=== PATIENT | male | born 1990 | race African-American/Black ===

== ENCOUNTER 2017-10-04 11:08 | Emergency (ER) | payer SELFPAY ==
[~2017-10-04] VITALS: Ht 177.8 cm; Wt 75.3 kg
[2017-10-04 11:15] VITALS: BP 136/76
[2017-10-04] MEDS ORDERED: SULF1TAB24 PO (12:05)
--- NOTE | 2017-10-04 15:36 | PHYS DOC ---
Past Medical History Past Medical History: No Pertinent History Past Surgical History: Other Additional Past Surgical Histo: NOSE Alcohol Use: None Drug Use: Marijuana Adult General Chief Complaint Chief Complaint: ABSCESS HPI HPI Patient is a 27 year old male who presents with an abscess to his right upper buttock. This started a couple of days ago and is increasing in pain. The patient has not taken anything for this condition and has never had an abscess before. Review of Systems Review of Systems Constitutional: Denies fever or chills [] Respiratory: Denies cough or shortness of breath [] Cardiovascular: No additional information not addressed in HPI [] Musculoskeletal: Denies back pain or joint pain [] Integument: See history of present illness Neurologic: Denies headache, focal weakness or sensory changes [] Endocrine: Denies polyuria or polydipsia [] All other systems were reviewed and found to be within normal limits, except as documented in this note. Allergies Allergies Allergies Coded Allergies Type Severity Reaction Last Updated Verified No Known Drug Allergies 10/04/17 No Physical Exam Physical Exam Constitutional: Well developed, well nourished, no acute distress, non-toxic appearance. [] Cardiovascular:Heart rate regular rhythm, no murmur [] Lungs & Thorax: Bilateral breath sounds clear to auscultation [] Skin: Is a half centimeter in diameter lesion starting in the patient's right upper buttock, there is no fluctuation, there is mild induration in the tissue Neurologic: Alert and oriented X 3, normal motor function, normal sensory function, no focal deficits noted. [] Psychologic: Affect normal, judgement normal, mood normal. [] Current Patient Data Vital Signs Vital Signs Date Time Temp Pulse Resp B/P (MAP) Pulse Ox O2 Delivery O2 Flow Rate FiO2 10/04/17 11:15 98.4 79 16 99 Room Air 98.4 EKG EKG [] Radiology/Procedures Radiology/Procedures [] Course & Med Decision Making Course & Med Decision Making Pertinent Labs and Imaging studies reviewed. (See chart for details) []1. Abscess You have an abscess that appears to be beginning to form. Please take the antibiotics as directed. Use hot compresses multiple times daily. Please return to the ED if worsening. Dragon Disclaimer Dragon Disclaimer This electronic medical record was generated, in whole or in part, using a voice recognition dictation system. Departure Departure Impression: Primary Impression: Abscess Disposition: 01 HOME, SELF-CARE Condition: STABLE Referrals: NO PCP (PCP) NON,STAFF Patient Instructions: Abscess Additional Instructions: Please use hot compresses multiple times daily. Keep the area clean and dry area if the abscess worsens please return to the ED or follow-up your primary care. Take all antibiotics as prescribed. Scripts Sulfamethoxazole/Trimethoprim (BACTRIM DS TABLET) 1 Each Tablet 1 TAB PO BID, #20 TAB Prov: PLACIDO BENITEZ APRN 10/04/17 PLACIDO BENITEZ APRN Oct 04, 2017 15:35
== END 2017-10-04 12:18 | disposition home or self-care (01) ==
LOC: ER 11:08
DX: L02.31 Cutaneous abscess of buttock (principal)
CPT/HCPCS: 99283

== ENCOUNTER 2017-10-09 12:25 | Emergency (ER) | payer SELFPAY ==
[~2017-10-09] VITALS: Ht 177.8 cm; Wt 75.3 kg
[~2017-10-09 12:25] MED LIST: SULF1TAB24 PO
[2017-10-09 12:34] VITALS: BP 179/76
[2017-10-09] MEDS ORDERED: LIDOCAINE 1%/EPI 1:100,000 20 ML VIAL. INJ ONE (12:45)
[2017-10-09] MEDS ORDERED: fentaNYL PF VIAL 100 MCG/2 ML VIAL IM ONE (12:45)
[2017-10-09] MEDS ORDERED: DIPHTH,PERTUSS(ACELL),TET TOX 0.5 ML DISP.SYRIN. VAX IM ONE (12:45)
[2017-10-09] MEDS ORDERED: HYDR-971 PO (13:35)
--- NOTE | 2017-10-09 13:39 | PHYS DOC ---
Past Medical History Past Medical History: No Pertinent History Past Surgical History: Other Additional Past Surgical Histo: Nasal fx Alcohol Use: None Drug Use: None Adult General Chief Complaint Chief Complaint: ABSCESS HPI HPI Patient is a 27 year old male who presents with left buttock . Patient was seen earlier this month, felt to not have a fluctuant abscess and discharged with Bactrim. He states it significantly worsened. No fevers reported, no drainage. He has had an abscess in the past but it did not require incision and drainage. Unsure of last Tetanus immunization. Review of Systems Review of Systems Constitutional: Denies fever or chills [] Eyes: Denies change in visual acuity, redness, or eye pain [] HENT: Denies nasal congestion or sore throat [] Respiratory: Denies cough or shortness of breath [] Cardiovascular: Denies chest pain GI: Denies abdominal pain, nausea, vomiting, bloody stools or diarrhea [] : Denies dysuria or hematuria [] Musculoskeletal: Denies back pain or joint pain [] Integument: History of present illness Neurologic: Denies headache, focal weakness or sensory changes [] Endocrine: Denies polyuria or polydipsia [] Current Medications Current Medications Current Medications Medications (Trade) Dose Ordered Sig/Cassidy Start Time Stop Time Status Last Admin Dose Admin Diphtheria/ Tetanus/Acell Pertussis (Boostrix) 0.5 ml ONCE ONCE 10/09/17 12:45 10/09/17 12:46 DC 10/09/17 12:50 0.5 ML Fentanyl Citrate (Fentanyl 2ml Vial) 75 mcg 1X ONCE 10/09/17 12:45 10/09/17 12:46 DC 10/09/17 12:50 75 MCG Lidocaine/ Epinephrine (Xylocaine 1%-Epi 1:100,000) 20 ml 1X ONCE 10/09/17 12:45 10/09/17 12:46 DC 10/09/17 12:48 20 ML Allergies Allergies Allergies Coded Allergies Type Severity Reaction Last Updated Verified No Known Drug Allergies 10/04/17 No Physical Exam Physical Exam Constitutional: Well developed, well nourished, no acute distress, non-toxic appearance. HENT: Normocephalic, atraumatic Eyes: conjunctiva normal, no discharge. Neck:supple Cardiovascular:Heart rate regular with regular rhythm Lungs & Thorax: No respiratory distress Skin: Warm, dry, left proximal medial buttocks with a large indurated abscess without opening or drainage, grossly tender to palpation with overlying erythema Extremities: No deformity, nontender Neurologic: Alert and oriented X 3, normal sensory function, no focal deficits noted. Psychologic: mood normal. Current Patient Data Vital Signs Vital Signs Date Time Temp Pulse Resp B/P (MAP) Pulse Ox O2 Delivery O2 Flow Rate FiO2 10/09/17 12:34 97.9 115 20 99 Room Air 97.9 EKG EKG [] Radiology/Procedures Radiology/Procedures Indication: abscess Procedure: The patient was positioned appropriately. Local anesthesia was 1% lidocaine with epi. An incision was then made over the apex of the lesion and copious foul-odored pus material was expressed. The drainage cavity was irrigated and packed with sterile gauze. The patients tetanus status updated as needed. The patient tolerated the procedure well. Complications: none.[] Course & Med Decision Making Course & Med Decision Making Pertinent Labs and Imaging studies reviewed. (See chart for details) I&D performed after patient was given 75 g I am fentanyl. He is not driving. I instructed the patient to have the wound checked in 2 days, continue the Bactrim as prescribed, strict return precautions were given and patient voice understanding. He was given 5 [place] tablets for breakthrough pain Dragon Disclaimer Dragon Disclaimer This electronic medical record was generated, in whole or in part, using a voice recognition dictation system. Departure Departure Impression: Primary Impression: Abscess Disposition: 01 HOME, SELF-CARE Condition: IMPROVED Patient Instructions: Abscess, [id number] Scripts Hydrocodone/Apap 5-325 (NORCO 5-325 TABLET) 1 Each Tablet 1-2 EACH PO PRN Q6HRS Y for breakthrough pain, #5 as needed for pain Prov: MIAN RODRIGUEZ MD 10/09/17 MIAN RODRIGUEZ MD Oct 09, 2017 13:39
== END 2017-10-09 13:47 | disposition home or self-care (01) ==
LOC: ER 12:25
DX: L02.31 Cutaneous abscess of buttock (principal)
CPT/HCPCS: 10060; 90471; 90715; 96372; 99284; J3010; J3490